=== PATIENT | female | born 1995 | race Caucasian/White ===

== ENCOUNTER 2016-10-26 12:00 | Emergency (ER) | payer OTHER ==
[~2016-10-26] VITALS: Ht 162.6 cm; Wt 65.9 kg
--- NOTE | 2016-10-26 12:03 | ED.REPORT ---
HPI-Dental/Mouth Prob Date of Service Oct 26, 2016 ED Provider: Ryan Siddiqi MD Pt is a healthy 21 year old female who presents to the ED with complaints of L sided tooth pain x 2 days. She reports that it is her wisdom teeth that are causing her pain, which has occurred in the past. She denies any hx of dental issues in the past. She denies any fevers, chills, cough, shortness of breath or any other symptoms. Nursing Notes Stated Complaint: TOOTH PAIN Nursing Notes Reviewed: Yes Allergies: Coded Allergies: No Known Allergies (Verified Allergy, Unknown, 10/26/16) Scheduled Amoxicillin/Clav K 875-125 mg (Augmentin 875-125 mg) 1 Each Tablet 1 TABLET PO BID Scheduled PRN Hydrocodone-Acetaminophen 5-325 mg (Hydrocodone-Acetaminophen 5-325 mg) 1 Each Tablet 1 TABLET PO Q4H PRN PRN For Pain Ibuprofen (Ibuprofen) 800 Mg Tablet 800 MG PO TID PRN PRN For Pain General Time Seen by MD: 12:03 Chief Complaint Tooth pain Hx Obtained From: Patient Arrived By: Walk-in Onset Occurred: 2 days ago Symptom Duration: Since onset Severity: Current: Moderate Severity: Maximum: Moderate Similar Sx Previous: Yes Past Medical History Past Surgical History denies Smoking History Current Every Day Smoker Social History Alcohol Use: Denies alcohol use Drug Use: Denies drug use 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 Physical Exam Initial Vital Signs Vital Signs (First) Date Time Temp Pulse Resp B/P Pulse Ox O2 Delivery O2 Flow Rate FiO2 10/26/16 12:07 36.7 77 16 115/67 99 Room Air Initial VS: Reviewed General/Constitutional: Well-developed, Well-nourished Head / Eyes: Atraumatic, Normocephalic, PERRL Respiratory: Breath sounds normal, Clear to auscultation, No respiratory distress Cardiovascular: Regular rate & rhythm, Heart sounds normal, Intact distal pulses Abdomen / GI: Soft, Non-tender, No guarding, No rebound, No distention Skin: Warm, Dry, No cyanosis Neurologic: Alert, Oriented, Nonfocal ENT: Atraumatic, Airway patent, Mucous membranes moist, Pharynx NL left lower posterior molar with infection no purulence drainage or erythema Neck: Atraumatic, Supple, No meningismus, Full range of motion Re-Eval/Medical Decision Med Decision/Clinical Course Dental infection. No evidence of abscess. Prescribed Augmentin. Referred to dentist. Return precautions given. Source of Hx: Old records Re-Evaluation/Progress : Time of Eval: 12:37 Re-Evaluation/Progress Note: Pt is rechecked and informed of her diagnosis and the plan to discharge her at this time. She understands and agrees, all questions are addressed. Counseled Regarding: Diagnosis, Need for follow-up, When/why to return to ED Discharge & Departure Primary Impression: Dental infection Disposition: Home Discharge Condition All VS Reviewed: Yes Condition: Stable Additional Instructions: Take the medications as prescribed. Take the pain medication sparingly, do not drink alcohol or drive while on this medication. Please follow up with a dentist next week to have the affected tooth extracted. Return to the emergency department with any worsening or concerning symptoms. Referrals: Dolly Hoffman MD (PCP) [place] Attestation Portions of this note were transcribed by Shaina Duarte. I, Dr. Siddiqi personally performed the history, physical exam and medical decision-making; I reviewed and confirmed the accuracy of the information in the transcribed note. Signed by: Wicho Giraldo, 10/26/2016 [id number] copies to: Dolly Hoffman MD, Ben M MD Oct 26, 2016 12:03 LINN DUARTE Oct 26, 2016 12:38
[2016-10-26 12:07] VITALS: BP 115/67; PULSE 77; RESP 16; O2SAT 99
[2016-10-26] MEDS ORDERED: HYDR-4003 PO (12:37)
[2016-10-26] MEDS ORDERED: AMOX-366 PO (12:37)
[2016-10-26] MEDS ORDERED: IBUP800T28 PO (12:37)
== END 2016-10-26 12:44 | disposition home or self-care (01) ==
LOC: SED 12:00
DX: K04.7 Periapical abscess without sinus (principal); F17.200 Nicotine dependence, unspecified, uncomplicated